=== PATIENT | male | born 1995 | race Caucasian/White ===

== ENCOUNTER 2022-11-29 12:36 | Emergency (ER) | payer SELFPAY ==
[2022-11-29] MEDS ORDERED: Tetracaine HCl/PF 0.5% 4 ML Bottle EYELF STA (13:06)
[2022-11-29] MEDS ORDERED: Diphtheria,Pertussis(Acell),Tetanus Vaccine 0.5 ML Syringe IM ONE (13:06)
== END 2022-11-29 14:15 | disposition home or self-care (01) ==
LOC: MW.ED 12:36
DX: T15.02XA Foreign body in cornea, left eye, initial encounter (principal); Z23 Encounter for immunization
CPT/HCPCS: 65220; 90471; 90715; 99283; 99283-25; J3490